=== PATIENT | female | born 1965 | race Two or more races ===

== ENCOUNTER 2020-03-13 07:15 | Inpatient (IN) | payer OTHER ==
[~2020-03-13] VITALS: Ht 157.5 cm; Wt 74.8 kg
[2020-03-17] MEDS ORDERED: B COMPLEX WITH1 EAC1 PO (11:00)
[2020-03-17] MEDS ORDERED: ZINC PO (11:01)
[2020-03-20] MEDS ORDERED: ZINC50 M1 (08:38)
== END 2020-03-22 13:07 | disposition home or self-care (01) | DRG 743 ==
LOC: ADM 07:15 → EDSTATUS 03-17 09:15 → ADM 03-17 09:15 → O/R 03-20 05:50 → OB/GYN 03-20 05:50
PROVIDERS: ADMIT Obstetrics & Gynecology Gynecologic Oncology
PROC: 0UT74ZZ Resection of Bilateral Fallopian Tubes, Percutaneous Endoscopic Approach (ICD-10-PCS; 2020-03-20)
PROC: 0UT24ZZ Resection of Bilateral Ovaries, Percutaneous Endoscopic Approach (ICD-10-PCS; 2020-03-20)
PROC: 07BC4ZX Excision of Pelvis Lymphatic, Percutaneous Endoscopic Approach, Diagnostic (ICD-10-PCS; 2020-03-20)
PROC: 0UT94ZZ Resection of Uterus, Percutaneous Endoscopic Approach (ICD-10-PCS; principal; 2020-03-20 07:15)
DX: D25.1 Intramural leiomyoma of uterus (principal); D25.0 Submucous leiomyoma of uterus; N72 Inflammatory disease of cervix uteri